=== PATIENT | female | born 1955 | race Caucasian/White ===

== ENCOUNTER 2016-06-19 10:25 | Inpatient (IN) | payer MEDICARE ==
[2016-06-19 10:28] VITALS: BMI 37.5
--- NOTE | 2016-06-19 11:15 | ED PDOC ---
Lower Extremity Pain/Injury Time Seen by Provider: 06/19/16 10:43 Chief Complaint (Nursing): Lower Extremity Problem/Injury Chief Complaint (Provider): bilateral knee pain History Per: Patient History/Exam Limitations: no limitations Onset/Duration Of Symptoms: Days Current Symptoms Are (Timing): Still Present Severity: Mild Additional Complaint(s): 60yo female hx lupus, bilateral knee replacements presents c/o new pain to left knee, inability to rise from bed, states had acute injury 2 days ago to left knee attempting to ascend her basement stairs. States did not fall but twisted knee and now cannot fully actively extend leg to arise from seated position. Taking alleve at home without relief. Uses walker at home but she is unable to arise from bed even with walker. - Knee Description Of Injury: Twisted Currently Unable To: Straighten, Bend Or Move Past Medical History Reviewed: Historical Data, Nursing Documentation, Vital Signs Vital Signs: Last Vital Signs Temp 97.6 F 06/19/16 10:27 Pulse 76 06/19/16 10:27 Resp 16 06/19/16 10:27 BP 126/55 L 06/19/16 10:27 Pulse Ox 100 06/19/16 10:27 - Medical History PMH: Anemia, Arthritis, Bronchitis (2015), COPD, Gastritis, HTN, Hypercholesterolemia, Hypothyroidism, Kidney Stones, Chronic Kidney Disease, Rheumatoid Arthritis Denies: HIV - Surgical History Other surgeries: b/l Knee replacements, thyroid - Family History Family History: States: Unknown Family Hx - Living Arrangements Living Arrangements: With Family - Social History Current smoker - smoking cessation education provided: No Alcohol: None - Home Medications Home Medications: Ambulatory Orders Medication Instructions Recorded Aspirin [Adult Low Dose Aspirin EC] 81 mg PO DAILY 02/22/16 Ergocalciferol (Vitamin D2) 50,000 units PO Q72 02/22/16 [Vitamin D2] Folic Acid 1 mg PO DAILY 02/22/16 Hydroxychloroquine Sulfate 200 mg PO DAILY 02/22/16 [Plaquenil] Hydroxyzine HCl 10 mg PO DAILY 02/22/16 Levothyroxine [Synthroid] 100 mcg PO DAILY 02/22/16 Thiamine [Vitamin B1 Tab] 100 mg PO DAILY 02/22/16 amLODIPine [Norvasc] 2.5 mg PO DAILY 02/22/16 Ferrous Sulfate [Feosol] 324 mg PO TID #0 ect 02/26/16 Lactobacillus Acidophilus [Bacid 1 cap PO BID #0 cap 02/26/16 Acidophilus] - Allergies Allergies/Adverse Reactions: Allergies Allergy/AdvReac Type Severity Reaction Status Date / Time prednisone Allergy SWELLING Verified 02/26/16 15:40 Review of Systems ROS Statement: Except As Marked, All Systems Reviewed And Found Negative Constitutional: Negative for: Fever, Chills Cardiovascular: Negative for: Chest Pain, Palpitations Gastrointestinal: Negative for: Nausea, Vomiting Genitourinary Female: Negative for: Dysuria, Frequency Musculoskeletal: Positive for: Leg Pain (knee pains). Negative for: Arm Pain, Foot Pain Physical Exam - Reviewed Nursing Documentation Reviewed: Yes Vital Signs Reviewed: Yes - Physical Exam Appears: Positive for: Well, Non-toxic, No Acute Distress Head Exam: Positive for: ATRAUMATIC, NORMAL INSPECTION, NORMOCEPHALIC Skin: Positive for: Normal Color, Warm, DRY Eye Exam: Positive for: EOMI, Normal appearance, PERRL ENT: Positive for: Normal ENT Inspection Respiratory: Positive for: CNT, Normal Breath Sounds Gastrointestinal/Abdominal: Positive for: Bowel Sounds, Soft. Negative for: Tenderness Back: Positive for: Normal Inspection Extremity: Positive for: Swelling (R>L knee mild edema, midline scars, loss active ROM due to pain) Neurologic/Psych: Positive for: Alert, Oriented - Laboratory Results Result Diagrams: 06/20/16 08:20 06/20/16 08:45 - ECG O2 Sat by Pulse Oximetry: 100 Medical Decision Making Medical Decision Making: Workup for knee injury given history bilateral knee hardware. Prior charts reviewed, Dr Pedro performed procedure 02/16, states she recently completed rehab for knee. IM toradol given for pain. XRays obtained. Accession No. : [id number] Patient Name / ID : TANO MILLER / [id number] Exam Date : 06/19/2016 11:07:41 ( Approved ) Study Comment : Sex / Age : F / 60Y Creator : Jose E Reyes Dictator : Jose E Reyes Pegger : Vp Purchasing : Jose E Reyes Approver2 : Report Date : 06/19/2016 11:37:33 My Comment : PROCEDURE: HISTORY: hx TKR, L knee acute/new pain; R knee chronic pain COMPARISON: Right knee x-ray 03/01/2016 TECHNIQUE: Four views of the left knee and three views of the right knee were performed for knee pain. Code to the existing documentation. FINDINGS: Since prior examination there has been interval removal of carmen from the right knee. Right total knee prosthesis is noted in anatomic position. No fracture is seen. Minor joint effusion is noted on the right. No new lucency to suggest loosening of the prosthesis is seen. Mild prepatellar soft tissue swelling is noted. Left knee prosthesis is also once again appreciated. Patellar component appears normal position. No knee joint effusion is seen. No fracture is noted. No lytic process is seen. No lucency at the bone prosthesis interface is seen to suggest loosening. IMPRESSION: Status post bilateral knee replacements. They appear in anatomic position. No definite plain film evidence of loosening or fracture. d/w Dr Pedro, given gait instability recommends CT knees and admit PMD. D/w Dr Gomez, will see in ER. Disposition - Clinical Impression Clinical Impression: Knee injury - Patient ED Disposition Is Patient to be Admitted: Transfer of Care Counseled Patient/Family Regarding: Studies Performed, Diagnosis, Need For Followup - Disposition Disposition: Transfer of Care Disposition Time: 15:00 Condition: GOOD Patient Signed Over To: Eirk Dhillon Handoff Comments: pending CT imaging and bloodwork - Pt Status Changed To: Hospital Disposition Of: Observation
--- NOTE | 2016-06-19 11:39 | RAD ---
PROCEDURE: HISTORY: hx TKR, L knee acute/new pain; R knee chronic pain COMPARISON: Right knee x-ray 03/01/2016 TECHNIQUE: Four views of the left knee and three views of the right knee were performed for knee pain. Code to the existing documentation. FINDINGS: Since prior examination there has been interval removal of carmen from the right knee. Right total knee prosthesis is noted in anatomic position. No fracture is seen. Minor joint effusion is noted on the right. No new lucency to suggest loosening of the prosthesis is seen. Mild prepatellar soft tissue swelling is noted. Left knee prosthesis is also once again appreciated. Patellar component appears normal position. No knee joint effusion is seen. No fracture is noted. No lytic process is seen. No lucency at the bone prosthesis interface is seen to suggest loosening. IMPRESSION: Status post bilateral knee replacements. They appear in anatomic position. No definite plain film evidence of loosening or fracture.
[2016-06-19 15:18] LABS: BASO # 0.1 K/uL (0.0-0.2); BASO % 1.1 % (0.0-2.0); EOS # 0.2 K/uL (0.0-0.7); EOS % 3.6 % (0.0-4.0); HEMATOCRIT 36.1 % (34.0-47.0); LYMPH # 0.6 K/uL (1.0-4.3); MEAN CELL VOLUME 92.3 fl (81.0-99.0); MEAN CORPUSCULAR HEMOGLOBIN 31.8 pg (27.0-31.0); MEAN CORPUSCULAR HGB CONC 34.5 g/dL (33.0-37.0); MEAN PLATELET VOLUME 8.4 fl (7.2-11.7); MONO # 0.5 K/uL (0.0-0.8); MONO % 9.4 % (0.0-10.0); NEUT # 3.7 K/uL (1.8-7.0); NEUT % 73.9 % (50.0-75.0); NRBC % 0.1 % (0.0-0.0); RED CELL DISTRIBUTION WIDTH 13.5 % (11.5-14.5)
[2016-06-19 15:24] LABS: ALB/GLOB RATIO 1.1 (1.0-2.1); ALKALINE PHOSPHATASE 81 U/L (38-126); ALT/SGPT 28 U/L (9-52); AST/SGOT 21 U/L (14-36); BILIRUBIN,TOTAL 0.6 mg/dl (0.2-1.3); BLOOD UREA NITROGEN 15 mg/dl (7-17); CALCIUM 9.4 mg/dL (8.4-10.2); CARBON DIOXIDE 25 mmol/L (22-30); CHLORIDE 106 mmol/L (98-107); GFR AFRICAN-AMERICAN > 60; GLUCOSE,RANDOM 98 mg/dL (65-105); POTASSIUM 4.3 MMOL/L (3.6-5.0); SODIUM 146 mmol/l (132-148); TOTAL PROTEIN 7.9 G/DL (6.3-8.2)
[2016-06-19 15:34] LABS: PARTIAL THROMBOPLASTIN TIME 25.8 SECONDS (23.3-32.5)
--- NOTE | 2016-06-19 16:56 | CP.PCM.HP ---
History of Present Illness - History of Present Illness History of Present Illness: 60yo female hx lupus, sever OA, bilateral knee replacements . She presents in ER with c/o new pain to left knee, inability to rise from bed, states had acute injury 2 days ago to left knee attempting to ascend her basement stairs. States did not fall but twisted knee and now cannot fully actively extend leg to arise from seated position. Taking over the counter non steroidal at home without relief. Uses walker at home but she is unable to arise from bed even with walker. She noticed a progressive edema and erythema in both knee but worse in the rt. Present on Admission - Present on Admission Any Indicators Present on Admission: No Review of Systems - Constitutional Constitutional: As Per HPI - EENT Eyes: As Per HPI - Cardiovascular Cardiovascular: As Per HPI - Respiratory Respiratory: As Per HPI - Gastrointestinal Gastrointestinal: As Per HPI - Musculoskeletal Musculoskeletal: As Per HPI - Integumentary Integumentary: As Per HPI - Neurological Neurological: As Per HPI - Psychiatric Psychiatric: As Per HPI Past Patient History - Infectious Disease Hx of Infectious Diseases: None - Past Medical History & Family History Past Medical History?: Yes - Past Social History Alcohol: None - CARDIAC Hx Hypercholesterolemia: Yes Hx Hypertension: Yes - PULMONARY Hx Bronchitis: Yes (2014) Hx Chronic Obstructive Pulmonary Disease (COPD): Yes - NEUROLOGICAL Hx Neurological Disorder: Yes Other/Comment: NUMBNESS.TINGLING TOES - HEENT Hx HEENT Problems: Yes Hx Cataracts: Yes - RENAL Hx Chronic Kidney Disease: Yes Hx Kidney Stones: Yes - ENDOCRINE/METABOLIC Hx Hypothyroidism: Yes - HEMATOLOGICAL/ONCOLOGICAL Hx Anemia: Yes Hx Human Immunodeficiency Virus (HIV): No - INTEGUMENTARY Hx Dermatological Problems: No - MUSCULOSKELETAL/RHEUMATOLOGICAL Hx Arthritis: Yes Hx Rheumatoid Arthritis: Yes - GASTROINTESTINAL Hx Gastritis: Yes - GENITOURINARY/GYNECOLOGICAL Hx Genitourinary Disorders: No - PSYCHIATRIC Hx Psychophysiologic Disorder: No Hx Substance Use: No - SURGICAL HISTORY Hx Surgeries: Yes Hx Herniorrhaphy: Yes (UMBERICAL HERNIAX2) Hx Joint Replacement: Yes (TOTAL LEFT KNEE REPLACEMENT 04/13/2014) Other/Comment: THYROIDECTOMY 2002. LASER SX FOR KIDNEY STONE - ANESTHESIA Hx Anesthesia: Yes Hx Anesthesia Reactions: No Hx Malignant Hyperthermia: No Meds Allergies/Adverse Reactions: Allergies Allergy/AdvReac Type Severity Reaction Status Date / Time prednisone Allergy SWELLING Verified 02/26/16 15:40 Physical Exam - Constitutional Additional comments: patient not able to move, no able to walk without assistance. She complains severe pain when articulate the rt knee. - Head Exam Head Exam: ATRAUMATIC, NORMAL INSPECTION, NORMOCEPHALIC - Eye Exam Eye Exam: Normal appearance - ENT Exam ENT Exam: Mucous Membranes Moist - Neck Exam Neck exam: Positive for: Full Rom - Respiratory Exam Respiratory Exam: Clear to Auscultation Bilateral - Cardiovascular Exam Cardiovascular Exam: REGULAR RHYTHM, +S1, +S2 - GI/Abdominal Exam GI & Abdominal Exam: Normal Bowel Sounds - Extremities Exam Extremities exam: Positive for: calf tenderness, pedal edema Additional comments: Rt knee area is tender, with edema and diffuse erythema, warmth, with severe limitation of the movements. - Neurological Exam Neurological exam: Abnormal Gait, Alert, CN II-XII Intact, Oriented x3, Reflexes Normal - Psychiatric Exam Psychiatric exam: Normal Affect - Skin Skin Exam: Normal Color Results - Vital Signs Recent Vital Signs: Last Vital Signs Temp 97.6 F 06/19/16 10:27 Pulse 76 06/19/16 10:27 Resp 16 06/19/16 10:27 BP 126/55 L 06/19/16 10:27 Pulse Ox 100 06/19/16 14:47 - Labs Result Diagrams: 06/19/16 15:00 06/19/16 15:00 Labs: Laboratory Results - last 24 hr 06/19/16 15:00 WBC 5.0 RBC 3.91 Hgb 12.4 D Hct 36.1 MCV 92.3 MCH 31.8 H MCHC 34.5 RDW 13.5 Plt Count 157 MPV 8.4 Neut % (Auto) 73.9 Lymph % (Auto) 12.0 L Clarke % (Auto) 9.4 Eos % (Auto) 3.6 Baso % (Auto) 1.1 Neut # 3.7 Lymph # 0.6 L Clarke # 0.5 Eos # 0.2 Baso # 0.1 PT 10.5 INR 1.01 APTT 25.8 Sodium 146 Potassium 4.3 Chloride 106 Carbon Dioxide 25 Anion Gap 19 BUN 15 Creatinine 0.6 L Est GFR ( Amer) > 60 Est GFR (Non-Af Amer) > 60 Random Glucose 98 Calcium 9.4 Total Bilirubin 0.6 AST 21 ALT 28 Alkaline Phosphatase 81 Total Protein 7.9 Albumin 4.1 Globulin 3.8 Albumin/Globulin Ratio 1.1 Assessment & Plan (1) Knee injury Status: Acute (2) S/P knee replacement Status: Chronic (3) Hypothyroid Status: Chronic (4) Osteoarthritis Status: Chronic (5) SLE (systemic lupus erythematosus) Status: Chronic (6) DVT (deep venous thrombosis) Status: Suspected - Assessment and Plan (Free Text) Plan: As per orders Will follow consults and w/u.
--- NOTE | 2016-06-19 18:26 | CP.PCM.PN ---
Subjective - Date & Time of Evaluation Date of Evaluation: 06/19/16 Time of Evaluation: 18:20 - Subjective Subjective: ID NOTE FULL CONSULT TO FOLLOW PATIENT EXAMINED ,CHART REVIEWED R KNEE IS SWOLLEN AND MILDLY ERYTHEMATOUS PAINFUL TO TOUCH QUESTIONABLE IF INFECTIOUS PROCESS BUT SHE IS IMMUNOCOMPROMISED (LUPUS) WILL RX C ZYVOX WHICH IS BEING IS MINIMALLY NEPHROTOXIC Objective - Vital Signs/Intake and Output Vital Signs (last 24 hours): Temp Pulse Resp BP Pulse Ox 97.6 F 76 16 126/55 L 100 06/19/16 10:27 06/19/16 10:27 06/19/16 10:27 06/19/16 10:27 06/19/16 14:47 - Medications Medications: Current Medications Acetaminophen/Codeine Phosphate (Tylenol/Codeine 300 Mg/30 Mg) 1 tab PO Q6 PRN PRN Reason: Pain, moderate (4-7) Amlodipine Besylate (Norvasc) 2.5 mg PO DAILY [facility] Enoxaparin Sodium (Lovenox) 40 mg SC DAILY [facility] PRN Reason: Protocol Folic Acid (Folic Acid) 1 mg PO DAILY [facility] Hydroxychloroquine Sulfate (Plaquenil) 200 mg PO DAILY [facility] Hydroxyzine HCl (Atarax) 10 mg PO DAILY [facility] Ceftriaxone Sodium 1 gm/ (Sodium Chloride) 100 mls @ 100 mls/hr IVPB DAILY [facility] Lactobacillus Acidophilus (Bacid Acidophilus) 1 cap PO BID [facility] Levothyroxine Sodium (Synthroid) 100 mcg PO DAILY [facility] Thiamine HCl (Vitamin B1 Tab) 100 mg PO DAILY [facility] Triamcinolone Acetonide (Kenalog 0.1% Cream) 1 appl TOP BID [facility] - Labs Labs: 06/19/16 15:00 06/19/16 15:00 PT 10.5 SECONDS (9.6-11.2) 06/19/16 15:00 INR 1.01 (0.92-1.08) 06/19/16 15:00 APTT 25.8 SECONDS (23.3-32.5) 06/19/16 15:00
[2016-06-19] MEDS: Lactobacillus Acidophilus 500 MU Cap PO SCH (19:33)
[2016-06-19] MEDS: Enoxaparin 40 mg Syringe SC SCH (19:39)
[2016-06-19] MEDS: Levothyroxine 100 MCG TAB PO SCH (19:40)
[2016-06-19 19:42] LABS: PARTIAL THROMBOPLASTIN TIME 22.6 SECONDS (23.3-32.5)
[2016-06-19] MEDS: Linezolid 600 mg in D5W 300 ml 300 ML IVPB SCH (21:15)
--- NOTE | 2016-06-19 21:54 | CON ---
DATE: 06/19/2016 HISTORY OF PRESENT ILLNESS: The patient is a 60-year-old female who has had bilateral knee replaceme nts, the last one being in 02/2016 and that was to the left knee. May be some incorrect information as I do not speak Macedonian, but as per discussion, she apparently injured her knee climbing up the sta irs from the basement. I asked her multiple times, pointed to it and she said it was the right knee, the one that she had recently done. Stated it was twisted and now she cannot fully extend the knee and it is quite painful. She had no relief with any medications that she took for pain, probably ibu profen. The patient denies any history of fever, chills or sweats. PHYSICAL EXAMINATION: HEENT: Within normal limits. Has a history of cataracts. NECK: Supple, full range of motion. LUNGS: Clear. HEART: Regular sinus rhythm. ABDOMEN: Soft, positive bowel sounds. EXTREMITIES: Her right knee, the suture line is intact. No evidence of infection, but the knee is q uite swollen, edematous and erythematous. It is warm and painful to touch. Left knee is also somewh at painful to touch also. LABORATORY DATA: WBC is 5, hemoglobin is 12.4, platelet count is 157. There are 73.9 polys and 12 l ymphs. Eosinophils of 3.6%. INR is 1.1. Chemistries: Creatinine is 0.6, GFR is greater than 60. Glucose is 98. Liver function tests: AST is 21, ALT is 28, alkaline phosphatase is 81. At this poi nt, I have also reviewed her past hospitalization. PLAN: Right now is probably a traumatic injury, but since it is swollen and edematous and the patien t has a history of lupus, thus is immunocompromised, I feel like she should be covered with IV antibi otics at this moment. I have started Zyvox 600 mg IV piggyback q.12 as is significantly less nephrot oxic than any other antibiotic agent and would like to give staph coverage. Jr Arnold MD cc: [id number] TT: 06/19/2016 21:18:24 Confirmation # [id number] Dictation # [id number] mn 06/19/2016 20:53:45
--- NOTE | 2016-06-20 07:34 | US ---
PROCEDURE: Bilateral lower extremity venous duplex Doppler. HISTORY: r/o dvt COMPARISON: None available. TECHNIQUE: Bilateral common femoral, superficial femoral, popliteal and posterior tibial veins were evaluated. Flow was assessed with color Doppler, compressibility, assessment of phasic flow and augmentation response. FINDINGS: COMMON FEMORAL VEIN: Right CFV: Unremarkable. Left CFV: Unremarkable. SUPERFICIAL FEMORAL VEIN: Right SFV: Unremarkable. Left SFV: Unremarkable. POPLITEAL VEIN: Right Popliteal: Unremarkable. Left Popliteal: Unremarkable. POSTERIOR TIBIAL VEIN: Right PTV: Unremarkable. Left PTV: Unremarkable. OTHER FINDINGS: None. IMPRESSION: No evidence of deep venous thrombosis.
[2016-06-20 09:06] LABS: BASO % 1.2 % (0.0-2.0); EOS # 0.2 K/uL (0.0-0.7); EOS % 6.2 % (0.0-4.0); HEMATOCRIT 37.8 % (34.0-47.0); LYMPH # 0.7 K/uL (1.0-4.3); LYMPH % 19.1 % (20.0-40.0); MEAN CELL VOLUME 93.4 fl (81.0-99.0); MEAN CORPUSCULAR HEMOGLOBIN 31.2 pg (27.0-31.0); MEAN CORPUSCULAR HGB CONC 33.4 g/dL (33.0-37.0); MEAN PLATELET VOLUME 8.4 fl (7.2-11.7); MONO # 0.3 K/uL (0.0-0.8); MONO % 8.2 % (0.0-10.0); NEUT # 2.4 K/uL (1.8-7.0); NEUT % 65.3 % (50.0-75.0); NRBC % 0.2 % (0.0-0.0); RED CELL DISTRIBUTION WIDTH 13.4 % (11.5-14.5); WHITE BLOOD COUNT 3.7 K/uL (4.8-10.8)
[2016-06-20] MEDS: Enoxaparin 40 mg Syringe SC SCH (09:09)
[2016-06-20] MEDS: Levothyroxine 100 MCG TAB PO SCH (09:10)
[2016-06-20] MEDS: Lactobacillus Acidophilus 500 MU Cap PO SCH ×2 (09:19→16:39)
[2016-06-20 09:28] LABS: BLOOD UREA NITROGEN 13 mg/dl (7-17); CALCIUM 9.6 mg/dL (8.4-10.2); CARBON DIOXIDE 25 mmol/L (22-30); CHLORIDE 106 mmol/L (98-107); GFR AFRICAN-AMERICAN > 60; GLUCOSE,RANDOM 114 mg/dL (65-105); POTASSIUM 4.5 MMOL/L (3.6-5.0); SODIUM 145 mmol/l (132-148)
[2016-06-20] MEDS: Linezolid 600 mg in D5W 300 ml 300 ML IVPB SCH ×3 (11:29→21:27)
[2016-06-20] MEDS: Acetaminophen-Codeine 300/30 mg Tab PO PRN ×2 (11:38→18:40)
--- NOTE | 2016-06-20 16:33 | NM ---
PROCEDURE: Three-phase bone scan HISTORY: R knee pain Relevant surgical history: Right knee replacement approximately 16 months ago. COMPARISON: June 19, 2016. Bilateral knees TECHNIQUE: Radionuclide dose: 25.0 Tc99m MDP Site of administration: Indwelling intravenous line Technique: Three-phase FINDINGS: Flow component: Mild increased flow to the right knee particularly about the femoral component of the knee prosthesis. Blood pool component: Slight increased accumulation of radionuclide about the periphery of the femoral component. Delayed images at 3:00: Findings consistent with bilateral TKA. IMPRESSION: No evidence of aseptic loosening or acute inflammatory process. Findings consistent with surgical history right knee replacement. Communication of results: I discussed the findings and my preliminary report with the referring orthopedic surgeon at 16:05. June 20, 2016.
--- NOTE | 2016-06-20 21:48 | CP.PCM.PN ---
Subjective - Date & Time of Evaluation Date of Evaluation: 06/20/16 Time of Evaluation: 21:57 - Subjective Subjective: Patient still c/o severe tenderness in the the rt knee not able to ambulate. A CT scan reveled the possibility of septic arthritis with severe prosthetic joints effusion. The patient presented with co-morbidity of rheumatoid arthritis and lupus, immune compromise with an elevation of the ESR. Will regularly admit for further diagnostic tests and iv antibx rx. Will follow with ortho and ID. Objective - Vital Signs/Intake and Output Vital Signs (last 24 hours): Temp Pulse Resp BP Pulse Ox 98.1 F 80 20 137/70 98 06/20/16 16:30 06/20/16 18:33 06/20/16 18:33 06/20/16 16:30 06/20/16 16:30 - Medications Medications: Current Medications Acetaminophen/Codeine Phosphate (Tylenol/Codeine 300 Mg/30 Mg) 1 tab PO Q6 PRN PRN Reason: Pain, moderate (4-7) Last Admin: 06/20/16 18:40 Dose: 1 tab Amlodipine Besylate (Norvasc) 2.5 mg PO DAILY [facility] Last Admin: 06/20/16 09:10 Dose: 2.5 mg Enoxaparin Sodium (Lovenox) 40 mg SC DAILY [facility] PRN Reason: Protocol Last Admin: 06/20/16 09:09 Dose: 40 mg Folic Acid (Folic Acid) 1 mg PO DAILY [facility] Last Admin: 06/20/16 09:09 Dose: 1 mg Hydroxychloroquine Sulfate (Plaquenil) 200 mg PO DAILY [facility] Last Admin: 06/20/16 09:10 Dose: 200 mg Hydroxyzine HCl (Atarax) 10 mg PO DAILY [facility] Last Admin: 06/20/16 09:09 Dose: 10 mg Ceftriaxone Sodium 1 gm/ (Sodium Chloride) 100 mls @ 100 mls/hr IVPB DAILY [facility] Last Admin: 06/20/16 09:11 Dose: 100 mls/hr Linezolid (Zyvox 600mg/300ml D5w) 300 mls @ 300 mls/hr IVPB Q12 [facility] Last Admin: 06/20/16 21:27 Dose: 300 mls/hr Lactobacillus Acidophilus (Bacid Acidophilus) 1 cap PO BID [facility] Last Admin: 06/20/16 16:39 Dose: 1 cap Levothyroxine Sodium (Synthroid) 100 mcg PO DAILY [facility] Last Admin: 06/20/16 09:10 Dose: 100 mcg Thiamine HCl (Vitamin B1 Tab) 100 mg PO DAILY [facility] Last Admin: 06/20/16 09:11 Dose: 100 mg Triamcinolone Acetonide (Kenalog 0.1% Cream) 1 appl TOP BID [facility] Last Admin: 06/20/16 16:39 Dose: 1 appl - Labs Labs: 06/20/16 08:20 06/20/16 08:45 PT 10.6 SECONDS (9.6-11.2) 06/19/16 19:21 INR 1.02 (0.92-1.08) 06/19/16 19:21 APTT 22.6 SECONDS (23.3-32.5) L 06/19/16 19:21 - Constitutional Appears: Chronically Ill - Head Exam Head Exam: ATRAUMATIC, NORMAL INSPECTION, NORMOCEPHALIC - Eye Exam Eye Exam: Normal appearance - ENT Exam ENT Exam: Mucous Membranes Moist - Neck Exam Neck Exam: Full ROM - Respiratory Exam Respiratory Exam: Clear to Ausculation Bilateral - Cardiovascular Exam Cardiovascular Exam: REGULAR RHYTHM, +S1, +S2 - GI/Abdominal Exam GI & Abdominal Exam: Normal Bowel Sounds - Extremities Exam Additional comments: Rt knee positive for edema and erythema (since antibx rx erythema decreasing) positive tenderness at palpation with warmth joint. - Neurological Exam Neurological Exam: Abnormal Gait, Alert, Awake, CN II-XII Intact, Oriented x3 Assessment and Plan (1) Knee injury Status: Acute (2) S/P knee replacement Status: Chronic (3) Hypothyroid Status: Chronic (4) Osteoarthritis Status: Chronic (5) SLE (systemic lupus erythematosus) Status: Chronic (6) DVT (deep venous thrombosis) Status: Acute (7) Septic arthritis Status: Acute - Assessment and Plan (Free Text) Plan: Continue present rx
[2016-06-21] MEDS: Linezolid 600 mg in D5W 300 ml 300 ML IVPB SCH ×2 (09:35→21:19)
[2016-06-21] MEDS: Levothyroxine 100 MCG TAB PO SCH (09:39)
[2016-06-21] MEDS: Enoxaparin 40 mg Syringe SC SCH (09:39)
[2016-06-21] MEDS: Lactobacillus Acidophilus 500 MU Cap PO SCH ×2 (09:42→16:29)
--- NOTE | 2016-06-21 10:04 | CT ---
PROCEDURE: CT right knee HISTORY: knee pain, S/P TKR COMPARISON: None available TECHNIQUE: 2.5 mm contiguous axial sections were acquired through the right knee. Sagittal and coronal images were reformatted from the axial scan. FINDINGS: The patient is status post total knee replacement. There is a displaced fracture of the superior pole of the patella with cephalad displacement of a fracture fragment. This fragment measures approximately 1.8 cm in greatest craniocaudal dimension. It appears to arise from the superior lateral aspect of the patella. The fracture is comminuted. There is no other fracture identified. The prosthesis appears grossly intact although evaluation is limited due to beam hardening artifact. There is no evidence of prosthesis loosening. There is a moderate suprapatellar collection of fluid. There is fluid seen within the vastus lateralis muscle. IMPRESSION: Comminuted mildly displaced fracture of the superior lateral pole of the right patella.
--- NOTE | 2016-06-21 10:06 | CT ---
PROCEDURE: CT left knee HISTORY: knee pain, s/p TKR COMPARISON: None available TECHNIQUE: 2.5 mm contiguous axial sections were acquired through the left knee. Sagittal and coronal images were reformatted from the axial scan. FINDINGS: The patient is status post total knee replacement. The prosthesis appears intact and in grossly acceptable alignment. There is no evidence of prosthesis loosening. There is no evidence of osseous fracture. There is a very small suprapatellar bursal fluid collection. The soft tissues are otherwise unremarkable. IMPRESSION: Status post total knee replacement without evidence of loosening or fracture.
--- NOTE | 2016-06-21 12:38 | CP.PCM.PN ---
Subjective - Date & Time of Evaluation Date of Evaluation: 06/21/16 Time of Evaluation: 12:40 - Subjective Subjective: Still c/o pain A new report of CTscan Fx of the patella. Will follow with ortho. Objective - Vital Signs/Intake and Output Vital Signs (last 24 hours): Temp Pulse Resp BP Pulse Ox 97.8 F 65 20 139/80 98 06/21/16 08:31 06/21/16 09:39 06/21/16 08:31 06/21/16 09:39 06/21/16 08:31 - Medications Medications: Current Medications Acetaminophen/Codeine Phosphate (Tylenol/Codeine 300 Mg/30 Mg) 1 tab PO Q6 PRN PRN Reason: Pain, moderate (4-7) Last Admin: 06/20/16 18:40 Dose: 1 tab Amlodipine Besylate (Norvasc) 2.5 mg PO DAILY [facility] Last Admin: 06/21/16 09:39 Dose: 2.5 mg Enoxaparin Sodium (Lovenox) 40 mg SC DAILY [facility] PRN Reason: Protocol Last Admin: 06/21/16 09:39 Dose: 40 mg Folic Acid (Folic Acid) 1 mg PO DAILY [facility] Last Admin: 06/21/16 09:39 Dose: 1 mg Hydroxychloroquine Sulfate (Plaquenil) 200 mg PO DAILY [facility] Last Admin: 06/21/16 09:39 Dose: 200 mg Hydroxyzine HCl (Atarax) 10 mg PO DAILY [facility] Last Admin: 06/21/16 09:39 Dose: 10 mg Ceftriaxone Sodium 1 gm/ (Sodium Chloride) 100 mls @ 100 mls/hr IVPB DAILY [facility] Last Admin: 06/21/16 09:35 Dose: 100 mls/hr Linezolid (Zyvox 600mg/300ml D5w) 300 mls @ 300 mls/hr IVPB Q12 [facility] Last Admin: 06/21/16 09:35 Dose: 300 mls/hr Lactobacillus Acidophilus (Bacid Acidophilus) 1 cap PO BID [facility] Last Admin: 06/21/16 09:42 Dose: 1 cap Levothyroxine Sodium (Synthroid) 100 mcg PO DAILY [facility] Last Admin: 06/21/16 09:39 Dose: 100 mcg Thiamine HCl (Vitamin B1 Tab) 100 mg PO DAILY [facility] Last Admin: 06/21/16 09:39 Dose: 100 mg Triamcinolone Acetonide (Kenalog 0.1% Cream) 1 appl TOP BID [facility] Last Admin: 06/21/16 09:40 Dose: 1 appl - Labs Labs: PT 10.6 SECONDS (9.6-11.2) 06/19/16 19:21 INR 1.02 (0.92-1.08) 06/19/16 19:21 APTT 22.6 SECONDS (23.3-32.5) L 06/19/16 19:21 - Head Exam Head Exam: ATRAUMATIC, NORMAL INSPECTION, NORMOCEPHALIC - Eye Exam Eye Exam: Normal appearance - Neck Exam Neck Exam: Full ROM - Respiratory Exam Respiratory Exam: Clear to Ausculation Bilateral - Cardiovascular Exam Cardiovascular Exam: REGULAR RHYTHM, +S1, +S2 - GI/Abdominal Exam GI & Abdominal Exam: Normal Bowel Sounds - Extremities Exam Additional comments: no new changes - Neurological Exam Neurological Exam: Alert, CN II-XII Intact, Oriented x3 Assessment and Plan (1) Knee injury Status: Acute (2) S/P knee replacement Status: Chronic (3) Hypothyroid Status: Chronic (4) Osteoarthritis Status: Chronic (5) SLE (systemic lupus erythematosus) Status: Chronic (6) DVT (deep venous thrombosis) Status: Acute (7) Septic arthritis Status: Acute (8) Fracture, patella Status: Acute - Assessment and Plan (Free Text) Plan: Continue present rx. F/U ortho.
[2016-06-21] MEDS: Acetaminophen-Codeine 300/30 mg Tab PO PRN (20:29)
--- NOTE | 2016-06-21 20:47 | CP.PCM.PN ---
Subjective - Date & Time of Evaluation Date of Evaluation: 06/22/16 Time of Evaluation: 20:46 - Subjective Subjective: id note patient is afebrile ct scan shows fractured R patella orthpaedics evaluating continue zyvox platelets :150 Objective - Vital Signs/Intake and Output Vital Signs (last 24 hours): Temp Pulse Resp BP Pulse Ox 97.8 F 78 20 125/67 97 06/21/16 17:45 06/21/16 17:45 06/21/16 17:45 06/21/16 17:45 06/21/16 17:45 - Medications Medications: Current Medications Acetaminophen/Codeine Phosphate (Tylenol/Codeine 300 Mg/30 Mg) 1 tab PO Q6 PRN PRN Reason: Pain, moderate (4-7) Last Admin: 06/21/16 20:29 Dose: 1 tab Amlodipine Besylate (Norvasc) 2.5 mg PO DAILY [facility] Last Admin: 06/21/16 09:39 Dose: 2.5 mg Enoxaparin Sodium (Lovenox) 40 mg SC DAILY [facility] PRN Reason: Protocol Last Admin: 06/21/16 09:39 Dose: 40 mg Folic Acid (Folic Acid) 1 mg PO DAILY [facility] Last Admin: 06/21/16 09:39 Dose: 1 mg Hydroxychloroquine Sulfate (Plaquenil) 200 mg PO DAILY [facility] Last Admin: 06/21/16 09:39 Dose: 200 mg Hydroxyzine HCl (Atarax) 10 mg PO DAILY [facility] Last Admin: 06/21/16 09:39 Dose: 10 mg Ceftriaxone Sodium 1 gm/ (Sodium Chloride) 100 mls @ 100 mls/hr IVPB DAILY [facility] Last Admin: 06/21/16 09:35 Dose: 100 mls/hr Linezolid (Zyvox 600mg/300ml D5w) 300 mls @ 300 mls/hr IVPB Q12 [facility] Last Admin: 06/21/16 09:35 Dose: 300 mls/hr Lactobacillus Acidophilus (Bacid Acidophilus) 1 cap PO BID [facility] Last Admin: 06/21/16 16:29 Dose: 1 cap Levothyroxine Sodium (Synthroid) 100 mcg PO DAILY [facility] Last Admin: 06/21/16 09:39 Dose: 100 mcg Thiamine HCl (Vitamin B1 Tab) 100 mg PO DAILY [facility] Last Admin: 03/21/17 09:39 Dose: 100 mg Triamcinolone Acetonide (Kenalog 0.1% Cream) 1 appl TOP BID [facility] Last Admin: 06/21/16 16:29 Dose: 1 appl - Labs Labs: PT 10.6 SECONDS (9.6-11.2) 06/19/16 19:21 INR 1.02 (0.92-1.08) 06/19/16 19:21 APTT 22.6 SECONDS (23.3-32.5) L 06/19/16 19:21
[2016-06-22] MEDS: Lactobacillus Acidophilus 500 MU Cap PO SCH ×2 (09:04→17:45)
[2016-06-22] MEDS: Levothyroxine 100 MCG TAB PO SCH (09:06)
[2016-06-22] MEDS: Enoxaparin 40 mg Syringe SC SCH (09:07)
--- NOTE | 2016-06-22 09:37 | CARD ---
APPROVED REPORT EKG Measurement Heart [id number] <Conclusion> Normal sinus rhythm Normal ECG
[2016-06-22 09:41] LABS: BASO % 1.3 % (0.0-2.0); EOS # 0.2 K/uL (0.0-0.7); EOS % 7.4 % (0.0-4.0); HEMATOCRIT 36.7 % (34.0-47.0); LYMPH # 0.5 K/uL (1.0-4.3); LYMPH % 16.6 % (20.0-40.0); MEAN CELL VOLUME 93.2 fl (81.0-99.0); MEAN CORPUSCULAR HEMOGLOBIN 31.1 pg (27.0-31.0); MEAN CORPUSCULAR HGB CONC 33.4 g/dL (33.0-37.0); MONO # 0.2 K/uL (0.0-0.8); MONO % 7.5 % (0.0-10.0); NEUT # 2.2 K/uL (1.8-7.0); NEUT % 67.2 % (50.0-75.0); RED CELL DISTRIBUTION WIDTH 13.3 % (11.5-14.5); WHITE BLOOD COUNT 3.3 K/uL (4.8-10.8)
[2016-06-22] MEDS: Linezolid 600 mg in D5W 300 ml 300 ML IVPB SCH ×2 (10:23→21:12)
[2016-06-22 11:27] LABS: BLOOD UREA NITROGEN 16 mg/dl (7-17); CALCIUM 9.8 mg/dL (8.4-10.2); CARBON DIOXIDE 29 mmol/L (22-30); CHLORIDE 103 mmol/L (98-107); GFR AFRICAN-AMERICAN > 60; GLUCOSE,RANDOM 96 mg/dL (65-105); POTASSIUM 4.2 MMOL/L (3.6-5.0); SODIUM 140 mmol/l (132-148)
--- NOTE | 2016-06-22 12:01 | RAD ---
PROCEDURE: CHEST RADIOGRAPH, 1 VIEW HISTORY: pre-op COMPARISON: 02/23/2016 FINDINGS: LUNGS: Clear. PLEURA: No pneumothorax or pleural fluid seen. CARDIOVASCULAR: Normal. OSSEOUS STRUCTURES: No significant abnormalities. VISUALIZED UPPER ABDOMEN: Normal. OTHER FINDINGS: None. IMPRESSION: No active disease.
--- NOTE | 2016-06-22 17:00 | CP.PCM.PN ---
Subjective - Date & Time of Evaluation Date of Evaluation: 06/22/16 Time of Evaluation: 17:02 - Subjective Subjective: Still c/o pain in both knee the rt more than the left. Since the antibx rx was started the erythema and edema is improving. The most recent report of the ctscan reveled a fx of the patella. Will continue present rx. Case discussed with ortho for arthrocentesis. Objective - Vital Signs/Intake and Output Vital Signs (last 24 hours): Temp Pulse Resp BP Pulse Ox 97.8 F 60 18 138/80 98 06/22/16 08:07 06/22/16 09:06 06/22/16 08:07 06/22/16 09:06 06/22/16 08:07 - Medications Medications: Current Medications Acetaminophen/Codeine Phosphate (Tylenol/Codeine 300 Mg/30 Mg) 1 tab PO Q6 PRN PRN Reason: Pain, moderate (4-7) Last Admin: 06/21/16 20:29 Dose: 1 tab Amlodipine Besylate (Norvasc) 2.5 mg PO DAILY [facility] Last Admin: 06/22/16 09:06 Dose: 2.5 mg Enoxaparin Sodium (Lovenox) 40 mg SC DAILY [facility] PRN Reason: Protocol Last Admin: 06/22/16 09:07 Dose: 40 mg Folic Acid (Folic Acid) 1 mg PO DAILY [facility] Last Admin: 06/22/16 09:06 Dose: 1 mg Hydroxychloroquine Sulfate (Plaquenil) 200 mg PO DAILY [facility] Last Admin: 06/22/16 09:07 Dose: 200 mg Hydroxyzine HCl (Atarax) 10 mg PO DAILY [facility] Last Admin: 06/22/16 09:06 Dose: 10 mg Ceftriaxone Sodium 1 gm/ (Sodium Chloride) 100 mls @ 100 mls/hr IVPB DAILY [facility] Last Admin: 06/22/16 09:04 Dose: 100 mls/hr Linezolid (Zyvox 600mg/300ml D5w) 300 mls @ 300 mls/hr IVPB Q12 [facility] Last Admin: 06/22/16 10:23 Dose: 300 mls/hr Lactobacillus Acidophilus (Bacid Acidophilus) 1 cap PO BID [facility] Last Admin: 06/22/16 09:04 Dose: 1 cap Levothyroxine Sodium (Synthroid) 100 mcg PO DAILY [facility] Last Admin: 06/22/16 09:06 Dose: 100 mcg Thiamine HCl (Vitamin B1 Tab) 100 mg PO DAILY [facility] Last Admin: 06/22/16 09:06 Dose: 100 mg Triamcinolone Acetonide (Kenalog 0.1% Cream) 1 appl TOP BID [facility] Last Admin: 06/22/16 09:06 Dose: 1 appl - Labs Labs: 06/22/16 09:36 06/22/16 11:03 PT 10.6 SECONDS (9.6-11.2) 06/19/16 19:21 INR 1.02 (0.92-1.08) 06/19/16 19:21 APTT 22.6 SECONDS (23.3-32.5) L 06/19/16 19:21 - Constitutional Appears: Chronically Ill - Head Exam Head Exam: ATRAUMATIC, NORMAL INSPECTION, NORMOCEPHALIC - Eye Exam Eye Exam: Normal appearance - ENT Exam ENT Exam: Mucous Membranes Moist - Neck Exam Neck Exam: Full ROM - Respiratory Exam Respiratory Exam: Clear to Ausculation Bilateral - Cardiovascular Exam Cardiovascular Exam: REGULAR RHYTHM, +S1, +S2 - GI/Abdominal Exam GI & Abdominal Exam: Normal Bowel Sounds - Extremities Exam Additional comments: + edema + erythema + tenderness in rt and left knee. - Neurological Exam Neurological Exam: Alert, Awake, Oriented x3 Assessment and Plan (1) Knee injury Status: Acute (2) S/P knee replacement Status: Chronic (3) Hypothyroid Status: Chronic (4) Osteoarthritis Status: Chronic (5) SLE (systemic lupus erythematosus) Status: Chronic (6) DVT (deep venous thrombosis) Status: Acute (7) Septic arthritis Status: Acute (8) Fracture, patella Status: Acute - Assessment and Plan (Free Text) Plan: Will follow ortho consult
[2016-06-22] MEDS: Acetaminophen-Codeine 300/30 mg Tab PO PRN (21:21)
[2016-06-23] MEDS: Lactobacillus Acidophilus 500 MU Cap PO SCH ×2 (09:38→18:46)
[2016-06-23] MEDS: Enoxaparin 40 mg Syringe SC SCH (09:39)
[2016-06-23] MEDS: Levothyroxine 100 MCG TAB PO SCH (09:40)
[2016-06-23] MEDS: Linezolid 600 mg in D5W 300 ml 300 ML IVPB SCH ×2 (13:08→20:14)
--- NOTE | 2016-06-23 13:24 | CP.PCM.PN ---
Subjective - Date & Time of Evaluation Date of Evaluation: 06/23/16 Time of Evaluation: 13:25 - Subjective Subjective: No new changes, still not able o ambulate. She is going for procedure today. Will follow ortho consult for further dx an rx. Objective - Vital Signs/Intake and Output Vital Signs (last 24 hours): Temp Pulse Resp BP Pulse Ox 97.8 F 63 20 135/76 97 06/23/16 08:27 06/23/16 08:27 06/23/16 08:27 06/23/16 08:27 06/23/16 08:27 - Medications Medications: Current Medications Acetaminophen/Codeine Phosphate (Tylenol/Codeine 300 Mg/30 Mg) 1 tab PO Q6 PRN PRN Reason: Pain, moderate (4-7) Last Admin: 06/22/16 21:21 Dose: 1 tab Amlodipine Besylate (Norvasc) 2.5 mg PO DAILY [facility] Last Admin: 06/23/16 09:39 Dose: Not Given Enoxaparin Sodium (Lovenox) 40 mg SC DAILY [facility] PRN Reason: Protocol Last Admin: 06/23/16 09:39 Dose: Not Given Folic Acid (Folic Acid) 1 mg PO DAILY [facility] Last Admin: 06/23/16 09:38 Dose: Not Given Hydroxychloroquine Sulfate (Plaquenil) 200 mg PO DAILY [facility] Last Admin: 06/23/16 09:39 Dose: Not Given Hydroxyzine HCl (Atarax) 10 mg PO DAILY [facility] Last Admin: 06/23/16 09:36 Dose: Not Given Ceftriaxone Sodium 1 gm/ (Sodium Chloride) 100 mls @ 100 mls/hr IVPB DAILY [facility] Last Admin: 06/23/16 09:56 Dose: 100 mls/hr Linezolid (Zyvox 600mg/300ml D5w) 300 mls @ 300 mls/hr IVPB Q12 [facility] Last Admin: 06/23/16 13:08 Dose: 300 mls/hr Lactobacillus Acidophilus (Bacid Acidophilus) 1 cap PO BID [facility] Last Admin: 06/23/16 09:38 Dose: Not Given Levothyroxine Sodium (Synthroid) 100 mcg PO DAILY [facility] Last Admin: 06/23/16 09:40 Dose: Not Given Thiamine HCl (Vitamin B1 Tab) 100 mg PO DAILY [facility] Last Admin: 06/23/16 09:39 Dose: Not Given Triamcinolone Acetonide (Kenalog 0.1% Cream) 1 appl TOP BID [facility] Last Admin: 06/22/16 17:45 Dose: 1 appl - Labs Labs: 06/22/16 09:36 06/22/16 11:03 PT 10.6 SECONDS (9.6-11.2) 06/19/16 19:21 INR 1.02 (0.92-1.08) 06/19/16 19:21 APTT 22.6 SECONDS (23.3-32.5) L 06/19/16 19:21 - Constitutional Appears: Chronically Ill - Head Exam Head Exam: ATRAUMATIC, NORMAL INSPECTION, NORMOCEPHALIC - Eye Exam Eye Exam: Normal appearance - ENT Exam ENT Exam: Mucous Membranes Moist - Neck Exam Neck Exam: Full ROM, Normal Inspection - Respiratory Exam Respiratory Exam: Clear to Ausculation Bilateral - Cardiovascular Exam Cardiovascular Exam: REGULAR RHYTHM, +S1, +S2 - GI/Abdominal Exam GI & Abdominal Exam: Normal Bowel Sounds - Extremities Exam Additional comments: No changes - Neurological Exam Neurological Exam: Alert, Awake, CN II-XII Intact, Oriented x3 - Psychiatric Exam Psychiatric exam: Normal Affect Assessment and Plan (1) Knee injury Status: Acute (2) S/P knee replacement Status: Chronic (3) Hypothyroid Status: Chronic (4) Osteoarthritis Status: Chronic (5) SLE (systemic lupus erythematosus) Status: Chronic (6) DVT (deep venous thrombosis) Status: Acute (7) Septic arthritis Status: Acute (8) Fracture, patella Status: Acute - Assessment and Plan (Free Text) Plan: Will follow ortho consult
[2016-06-23] MEDS ORDERED: Midazolam 2 MG/2 ML VIAL ONE (13:33)
[2016-06-23] MEDS ORDERED: Propofol 10 mg/ml Inj (20 ML) ONE (13:33)
[2016-06-23] MEDS ORDERED: Succinylcholine 200 mg/10 ml Inj IV ONE (13:33)
[2016-06-23] MEDS ORDERED: Neostigmine Methylsulfate 2 MG/2 ML ML IV ONE (13:33)
[2016-06-23] MEDS ORDERED: Lidocaine Hydrochloride 5 ML INJ ONE (13:33)
[2016-06-23] MEDS ORDERED: Rocuronium 10 mg/ml (5 ml) ONE (13:34)
[2016-06-23] MEDS ORDERED: Lidocaine 4% (Laryng-O-Jet) Kit MM ONE (13:40)
[2016-06-23] MEDS ORDERED: ePHEDrine 50 mg/ml Inj ONE (14:34)
[2016-06-23] MEDS ORDERED: Lidocaine 1% Inj (20ml) ONE (15:15)
[2016-06-23] MEDS ORDERED: Lidocaine 1% Inj (20ml) IJ ONE (15:22)
[2016-06-23] MEDS ORDERED: Bacitracin Ointment 30 GM TUBE ONE (15:29)
[2016-06-23] MEDS ORDERED: Bacitracin OINT 15GM TOP ONE (15:55)
[2016-06-23 15:58] LABS: FLUID TYPE SYNOVIAL FLUID
--- NOTE | 2016-06-23 16:03 | PCM.SURG1 ---
Surgeon's Initial Post Op Note - Surgeon's Notes Surgeon: Mayela Pole Framer: MALINDA Mccord Type of Anesthesia: General Endo Anesthesia Administered By: DR Colunga Pre-Operative Diagnosis: r/o patella fx. R knee effusion Operative Findings: marked synovitis- tricompartmental. patella fx- superior pole. hemarthrosis Post-Operative Diagnosis: as above Operation Performed: surgical arthroscopy parial tricompartmental synovectomy. arthroscopy culture and bx. manipulation r knee under anaesthesia. applx knee immobilizer Specimen/Specimens Removed: synovium. bloody synovial fluid Estimated Blood Loss: EBL {In ML}: 25 Blood Products Given: N/A Drains Used: No Drains Post-Op Condition: Good Date of Surgery/Procedure: 06/23/16 Time of Surgery/Procedure: 15:20 (time in room 14:23/anesthesia induction time 1423)
[2016-06-23] MEDS ORDERED: HYDROmorphone 0.5 mg/0.5 ml ISec IVP PRN (16:10)
--- NOTE | 2016-06-23 17:19 | RAD ---
PROCEDURE: Right Knee Radiographs. HISTORY: s/p fall/s/p knee arthroscopy COMPARISON: 06/19/2016 FINDINGS: BONES: Bone alignment and mineralization are normal. There is no acute fracture or bone destruction. JOINTS: Status post total knee arthroplasty. Stable appearance of hardware without evidence of hardware complications. JOINT EFFUSION: There is air within the suprapatellar pulse are in keeping with recent arthroscopy. OTHER FINDINGS: There is moderate prepatellar soft tissue swelling. IMPRESSION: Status post arthroscopy, air within the supra patellar bursa is in keeping with recent intervention. No other significant interval change.
[2016-06-23] MEDS ORDERED: Lactated Ringer's 1,000 ML IV ONE (17:25)
[2016-06-23 18:48] LABS: SYNOVIAL FLUID TOTAL COUNT 100 (0-0)
[2016-06-23] MEDS: Lactated Ringer's 1,000 ML IV SCH ×2 (18:51→20:13)
[2016-06-24] MEDS: Acetaminophen-Codeine 300/30 mg Tab PO PRN ×3 (08:28→22:46)
[2016-06-24] MEDS: Enoxaparin 40 mg Syringe SC SCH (09:25)
[2016-06-24] MEDS: Linezolid 600 mg in D5W 300 ml 300 ML IVPB SCH ×2 (09:29→20:13)
[2016-06-24] MEDS: Lactobacillus Acidophilus 500 MU Cap PO SCH ×2 (09:32→16:34)
[2016-06-24] MEDS: Levothyroxine 100 MCG TAB PO SCH (09:43)
--- NOTE | 2016-06-24 11:47 | CP.PCM.DIS ---
Provider - Provider Date of Admission: 06/20/16 22:01 Attending physician: Wilian Gomez MD Primary care physician: Wilian Gomez MD Time Spent in preparation of Discharge (in minutes): 35 Diagnosis - Discharge Diagnosis (1) Knee injury Status: Acute (2) S/P knee replacement Status: Chronic (3) Hypothyroid Status: Chronic (4) Osteoarthritis Status: Chronic (5) SLE (systemic lupus erythematosus) Status: Chronic (6) DVT (deep venous thrombosis) Status: Acute (7) Septic arthritis Status: Acute (8) Fracture, patella Status: Acute Hospital Course - Lab Results Lab Results: Micro Results 06/23/16 15:56 Knee Right Fungal Culture - Preliminary 06/23/16 15:56 Knee - Right Gram Stain - Final 06/23/16 15:56 Knee - Right Wound Culture - Preliminary NO GROWTH AFTER 24 HOURS 06/23/16 15:56 Knee - Right Gram Stain - Final 06/23/16 15:56 Knee - Right Wound Culture - Preliminary NO GROWTH AFTER 24 HOURS 06/23/16 15:56 Knee - Right Gram Stain - Final 06/23/16 15:56 Knee - Right Wound Culture - Preliminary NO GROWTH AFTER 24 HOURS 06/23/16 15:56 Knee - Right Gram Stain - Final 06/23/16 15:56 Knee - Right Wound Culture - Preliminary NO GROWTH AFTER 24 HOURS 06/23/16 15:56 Knee - Right Gram Stain - Final 06/23/16 15:56 Knee - Right Wound Culture - Preliminary NO GROWTH AFTER 24 HOURS 06/23/16 15:56 Knee - Right Gram Stain - Final 06/23/16 15:56 Knee - Right Wound Culture - Preliminary NO GROWTH AFTER 24 HOURS 06/23/16 15:56 Knee - Right Gram Stain - Final 06/23/16 15:56 Knee - Right Wound Culture - Preliminary NO GROWTH AFTER 24 HOURS 06/23/16 15:56 Knee - Right Gram Stain - Final 06/23/16 15:56 Knee - Right Wound Culture - Preliminary NO GROWTH AFTER 24 HOURS Most Recent Lab Values WBC 3.3 K/uL (4.8-10.8) L 06/22/16 09:36 RBC 3.94 Mil/uL (3.80-5.20) 06/22/16 09:36 Hgb 12.3 g/dL (12.0-16.0) 06/22/16 09:36 Hct 36.7 % (34.0-47.0) 06/22/16 09:36 MCV 93.2 fl (81.0-99.0) 06/22/16 09:36 MCH 31.1 pg (27.0-31.0) H 06/22/16 09:36 MCHC 33.4 g/dL (33.0-37.0) 06/22/16 09:36 RDW 13.3 % (11.5-14.5) 06/22/16 09:36 Plt Count 165 K/uL (130-400) 06/22/16 09:36 MPV 8.0 fl (7.2-11.7) 06/22/16 09:36 Neut % (Auto) 67.2 % (50.0-75.0) 06/22/16 09:36 Lymph % (Auto) 16.6 % (20.0-40.0) L 06/22/16 09:36 [place] % (Auto) 7.5 % (0.0-10.0) 06/22/16 09:36 Eos % (Auto) 7.4 % (0.0-4.0) H 06/22/16 09:36 Baso % (Auto) 1.3 % (0.0-2.0) 06/22/16 09:36 Neut # 2.2 K/uL (1.8-7.0) 06/22/16 09:36 Lymph # 0.5 K/uL (1.0-4.3) L 06/22/16 09:36 [place] # 0.2 K/uL (0.0-0.8) 06/22/16 09:36 Eos # 0.2 K/uL (0.0-0.7) 06/22/16 09:36 Baso # 0.0 K/uL (0.0-0.2) 06/22/16 09:36 ESR 58 mm/hr (0-30) H 06/19/16 19:21 PT 10.6 SECONDS (9.6-11.2) 06/19/16 19:21 INR 1.02 (0.92-1.08) 06/19/16 19:21 APTT 22.6 SECONDS (23.3-32.5) L 06/19/16 19:21 Sodium 140 mmol/l (132-148) 06/22/16 11:03 Potassium 4.2 MMOL/L (3.6-5.0) 06/22/16 11:03 Chloride 103 mmol/L (98-107) 06/22/16 11:03 Carbon Dioxide 29 mmol/L (22-30) 06/22/16 11:03 Anion Gap 12 (10-20) 06/22/16 11:03 BUN 16 mg/dl (7-17) 06/22/16 11:03 Creatinine 0.7 mg/dL (0.7-1.2) 06/22/16 11:03 Est GFR ( Amer) > 60 06/22/16 11:03 Est GFR (Non-Af Amer) > 60 06/22/16 11:03 POC Glucose (mg/dL) 78 mg/dL (65-110) 06/23/16 16:25 Random Glucose 96 mg/dL (65-105) 06/22/16 11:03 Calcium 9.8 mg/dL (8.4-10.2) 06/22/16 11:03 Total Bilirubin 0.6 mg/dl (0.2-1.3) 06/19/16 15:00 AST 21 U/L (14-36) 06/19/16 15:00 ALT 28 U/L (9-52) 06/19/16 15:00 Alkaline Phosphatase 81 U/L (38-126) 06/19/16 15:00 Total Protein 7.9 G/DL (6.3-8.2) 06/19/16 15:00 Albumin 4.1 g/dL (3.5-5.0) 06/19/16 15:00 Globulin 3.8 gm/dL (2.2-3.9) 06/19/16 15:00 Albumin/Globulin Ratio 1.1 (1.0-2.1) 06/19/16 15:00 Procalcitonin < 0.05 NG/ML (0.19-0.49) L 06/19/16 19:20 TSH 3rd Generation 3.65 mIU/ML (0.46-4.68) 06/19/16 19:21 Fluid Type Synovial fluid 06/23/16 15:56 Synovial WBC 242.0 /mm3 (0.0-150.0) H 06/23/16 15:56 Synovial RBC 51326.0 /mm3 (0.0-0.0) H 06/23/16 15:56 Synovial Neutrophils 54.0 % (0-0) H 06/23/16 15:56 Synovial Lymphocytes 11.0 % (0-0) H 06/23/16 15:56 Synov Monos/Macrophage 35 % (0-0) H 06/23/16 15:56 Synovial Fluid Comment Bloody 06/23/16 15:56 Teichoic Acid Antibody TNP 06/20/16 06:10 - Hospital Course Hospital Course: 60yo female hx lupus, sever OA, bilateral knee replacements . She presents in ER with c/o new pain to left knee, inability to rise from bed, states had acute injury 2 days ago to left knee attempting to ascend her basement stairs. States did not fall but twisted knee and now cannot fully actively extend leg to arise from seated position. Taking over the counter non steroidal at home without relief. Uses walker at home but she is unable to arise from bed even with walker. She noticed a progressive edema and erythema in both knee but worse in the rt. Subsequent test reveled a fx of the t patella and possible septic arthritis. Will transfer to SNF to continue present care. Discharge Exam - Head Exam Head Exam: ATRAUMATIC, NORMAL INSPECTION, NORMOCEPHALIC - Eye Exam Eye Exam: Normal appearance Pupil Exam: NORMAL ACCOMODATION - Neck Exam Neck exam: Full Rom - Respiratory Exam Respiratory Exam: Clear to PA & Lateral - Cardiovascular Exam Cardiovascular Exam: REGULAR RHYTHM, +S1, +S2 - GI/Abdominal Exam GI & Abdominal Exam: Normal Bowel Sounds - Extremities Exam Additional comments: rt knee soft cast in place. - Neurological Exam Neurological exam: Alert, CN II-XII Intact, Oriented x3 - Psychiatric Exam Psychiatric exam: Normal Affect Discharge Plan - Follow Up Plan Condition: GOOD Disposition: TRANSF TO SNF Referrals: Wilian Gomez MD [Primary Care Provider] -
--- NOTE | 2016-06-24 12:02 | OP ---
PROCEDURE DATE: 06/23/2016 PREOPERATIVE DIAGNOSIS: Status post traumatic injury to the right knee, status post successful right total knee replacement. OPERATIVE FINDINGS: 1. Marked synovitis in the knee with evidence of hemarthrosis. 2. Patellar fracture. POSTOPERATIVE DIAGNOSIS: 1. Minimally displaced patellar fracture without evidence of component loosening. 2. Hemarthrosis and tricompartmental synovitis. PROCEDURES: 1. Surgical arthroscopy, partial tricompartmental synovectomy 2. Surgical arthroscopy, culture and biopsy. 3. Manipulation of right knee under anesthesia. 4. Application of knee immobilizer. SURGEON: Pablo Pedro MD PARACHUTE TAPER: Kadei Frias, Certified Registered Nursing Government Operations Consultant. SPECIMENS REMOVED: bloody synovial fluid, synovium. ESTIMATED BLOOD LOSS: 25 mL. BLOOD PRODUCTS: None given. DRAINS: None. POSTOPERATIVE CONDITION: Stable. OPERATIVE INDICATION: The patient is a woman well known to my practice who sustained a fall. The pa carlos was admitted to Dr. Wilian Gomez's service with a swollen knee and effusion. There is quest ion of sepsis, question of fracture. The patient was aspirated. This patient was scheduled for aspi ration. It was decided that arthroscopy would be accomplished since there were conflicting x-ray rep orts regarding patellar fracture. OPERATIVE PROCEDURE: After having obtained informed consent, after thoroughly discussing the pros, c ons, risks and benefits of surgical arthroscopy and evaluation under anesthesia, the concept that she may require secondary surgery in the future if the fracture does not heal, possibility of sepsis, th e possibility of mechanical failure, infection, thromboembolic disease, secondary or tertiary surgery is discussed. After having obtained informed consent in the above fashion, after the satisfactory induction of the anesthetic, general endotracheal anesthesia by Dr. Colunga, after having identified side, site and proced ure and a critical pause/timeout, the patient identified as Amalia Arguello in the supine positio n with all bony prominences well padded, the right lower extremity is prepped and free draped in the usual fashion for lower extremity surgery. No tourniquet is employed. After having identified side, site and procedure and a critical pause/timeout, the joint is insufflated with 10 mL of 1% lidocaine without epinephrine. Using a #11 blade, followed by spreading, followed by introduction of blunt tr ocar, the arthroscope is introduced. Immediately, there is an egress of bloody fluid. This is sent to the lab for stat Gram stain, number of white cells per high power field. An anteromedial is accom plished using #18 gauge spinal needle, followed by a #11 blade, followed by spreading. With the arth roscope anterolaterally, with the surgeon exerting a gentle valgus stress, the arthroscopic shaver i s introduced and a careful partial tricompartmental synovectomy is accomplished, both to improve visu alization and to ablate irritative tissue. Bleeding points are controlled with the surface wand. Th is having been accomplished, an extensive partial tricompartmental synovectomy is accomplished using the arthroscopic shaver. Bleeding points controlled with the wand. Synovial specimens are sent for culture and biopsy. The synovial fluid is sent for stat Gram stain, number of white cells per high p ower field, aerobic, anaerobic, AFB and fungal cultures. This having been accomplished, the wound is closed with interrupted Vicryl and nylon. Intraarticular injection of Marcaine is accomplished. At this point in time, under the surgeon's direction, the fluoroscope is positioned. Video images are generated. Therapeutic decisions are made there from. The knee is manipulated and there is found to be evidence of a non to minimally displaced proximal pole patellar fracture without evidence of comp onent loosening. It should be noted that the patellofemoral joint was evaluated under arthroscopy. There was no evidence of bleeding from that region. The question of whether this is an old finding i s entertained. The patient has little tenderness in the area of the patella on preop examination. T he wounds are closed as I said with Vicryl and nylon. Intraarticular injection is offered. Alexx anderson compression dressing and knee immobilizer is applied and we will have restricted weightbearing. Pablo Pedro MD cc: [id number] TT: 06/24/2016 12:02:32 ne
--- NOTE | 2016-06-24 16:54 | RAD ---
PROCEDURE: Fluoroscopy up to 1 hr. HISTORY: Fluoroscopy COMPARISON: None TECHNIQUE: Standard protocol for this study/examination. FINDINGS: Submitted images from the current procedure: 2.0. IMPRESSION: Less than 1 hr fluoroscopic time utilized during performance of the procedure.
[2016-06-24 18:11] VITALS: PULSE 76; RESP 20
[2016-06-24 22:27] VITALS: BP 125/64; TEMP 98.3; O2SAT 96
== END 2016-06-24 23:26 | DRG 488 ==
LOC: H.ER 10:25 → H.ERHOLD 14:48 → H.MEDSURG1 17:15 → OBSVTOIN 06-20 22:01
PROVIDERS: ADMIT Internal Medicine; ATTEND Internal Medicine
PROC: 0SBC4ZX Excision of Right Knee Joint, Percutaneous Endoscopic Approach, Diagnostic (ICD-10-PCS; 2016-06-23)
PROC: 0SBC4ZZ Excision of Right Knee Joint, Percutaneous Endoscopic Approach (ICD-10-PCS; principal; 2016-06-23 15:15)
DX: S82.001A Unspecified fracture of right patella, initial encounter for closed fracture (principal); M25.061 Hemarthrosis, right knee; M32.9 Systemic lupus erythematosus, unspecified; M00.9 Pyogenic arthritis, unspecified; I12.9 Hypertensive chronic kidney disease with stage 1 through stage 4 chronic kidney disease, or unspecified chronic kidney disease; E03.9 Hypothyroidism, unspecified; Y92.009 Unspecified place in unspecified non-institutional (private) residence as the place of occurrence of the external cause; E78.00 Pure hypercholesterolemia, unspecified; N18.9 Chronic kidney disease, unspecified; G89.29 Other chronic pain; M06.9 Rheumatoid arthritis, unspecified; Z96.653 Presence of artificial knee joint, bilateral; K29.70 Gastritis, unspecified, without bleeding; M25.461 Effusion, right knee; M65.9 Synovitis and tenosynovitis, unspecified